=== PATIENT | female | born 2000 | race Caucasian/White ===

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

== ENCOUNTER 2021-01-23 13:43 | Emergency (ER) | payer OTHER ==
[~2021-01-23 13:43] MED LIST: COLACE 100MG C100 MG PO; IBUPROFEN600 MG PO
[2021-01-23 14:34] LABS: HEMOGLOBIN 12.5 gm/dl (12.3-15.3); RED BLOOD COUNT 4.53 M/UL (4.00-5.10); WHITE BLOOD COUNT 8.6 K/UL (4.5-11.0)
[2021-01-23 15:06] LABS: BUN/CREATININE RATIO 16 (0-10)
[2021-01-23] MEDS ORDERED: HYDROCODON-ACE1 EAC4 PO (23:13)
[2021-01-23] MEDS ORDERED: IBUPROFEN600 MG PO (23:13)
[2021-01-23] MEDS ORDERED: OMNICEF 300 MG300 MG PO (23:13)
[2021-01-23] MEDS ORDERED: ZOFRAN ODT 4 MG4 MG SL (23:13)
[2021-01-26 13:27] LABS: ACINETOBACTER BAUMANNII Not Detected (Negative); CANDIDA ALBICANS Not Detected (Negative); CANDIDA KRUSEI Not Detected (Negative); CANDIDA TROPICALIS Not Detected (Negative); ENTEROCOCCUS Not Detected (Negative); HAEMOPHILUS INFLUENZAE Not Detected (Negative); KLEBSIELLA OXYTOCA Not Detected (Negative); KLEBSIELLA PNEUMONIAE Not Detected (Negative); KPC-CARBAPENEM-RESISTANCE GENE Not Detected (Negative); PROTEUS Not Detected (Negative); PSEUDOMONAS AERUGINOSA Not Detected (Negative); SERRATIA MARCESANS Not Detected (Negative); STAPHYLOCOCCUS Not Detected (Negative); STAPHYLOCOCCUS AUREUS Not Detected (Negative); STREP AGALACTIAE (GROUP B) Not Detected (Negative); STREP PYOGENES (GROUP A) Not Detected (Negative); STREPTOCOCCUS Not Detected (Negative); mecA (METHICILLIN RESIST GENE Not Detected (Negative); vanA/B (VANCOMYCIN RESIST GENE Not Detected (Negative)
[2021-01-26 14:25] LABS: ESCHERICHIA COLI DETECTED (Negative)
== END 2021-01-23 23:30 | disposition home or self-care (01) ==
LOC: ER1 13:43
PROVIDERS: Emergency Medicine
DX: N12 Tubulo-interstitial nephritis, not specified as acute or chronic (principal); Z91.040 Latex allergy status; F17.200 Nicotine dependence, unspecified, uncomplicated
CPT/HCPCS: 80053; 81001; 82150; 83605; 83690; 84703; 85025; 87040; 87077; 87150; 87186; 96374; 96375; 99284; J1885; J2405; J7030; Q9967

== ENCOUNTER 2022-02-21 18:10 | Outpatient (CLI) | payer OTHER ==
[~2022-02-21 18:10] MED LIST changes: +HYDROCODON-ACE1 EAC4 PO; +OMNICEF 300 MG300 MG PO; +ZOFRAN ODT 4 MG4 MG SL
== END 2022-02-21 20:01 | disposition other institution (70) ==
LOC: GENOP 18:10
DX: Z53.9 Procedure and treatment not carried out, unspecified reason (principal)
CPT/HCPCS: G0463

== ENCOUNTER 2022-02-21 20:04 | Emergency (ER) | payer OTHER ==
[2022-02-21 21:59] LABS: RED BLOOD COUNT 3.78 M/UL (4.00-5.10); WHITE BLOOD COUNT 11.2 K/UL (4.5-11.0)
[2022-02-21 22:20] LABS: BUN/CREATININE RATIO 12 (0-10)
== END 2022-02-22 01:45 | disposition home or self-care (01) ==
LOC: ER1 20:04
PROVIDERS: Physician Assistant
DX: R09.89 Other specified symptoms and signs involving the circulatory and respiratory systems (principal); R07.9 Chest pain, unspecified; F17.290 Nicotine dependence, other tobacco product, uncomplicated; R40.2410 Glasgow coma scale score 13-15, unspecified time; Z91.040 Latex allergy status; Z20.822 Contact with and (suspected) exposure to COVID-19
CPT/HCPCS: 0240U; 71045; 80053; 85025; 85379; 85610; 85730; 99285; Q9967

== ENCOUNTER 2022-03-20 10:44 | Outpatient (CLI) | payer OTHER ==
[~2022-03-20] VITALS: Ht 165.1 cm; Wt 77.1 kg
== END 2022-03-20 12:27 | disposition home or self-care (01) ==
LOC: GENOP 10:44
DX: O47.1 False labor at or after 37 completed weeks of gestation (principal); O99.333 Smoking (tobacco) complicating pregnancy, third trimester; F17.290 Nicotine dependence, other tobacco product, uncomplicated; Z3A.38 38 weeks gestation of pregnancy
CPT/HCPCS: 81001; 84112; G0463